=== PATIENT | male | born 1980 | race Caucasian/White ===

== ENCOUNTER 2021-08-25 22:52 | Observation (INO) | payer OTHER ==
[2021-08-25 23:20] LABS: HEMOGLOBIN 13.7 gm/dl (14.0-17.5); RED BLOOD COUNT 4.05 M/UL (4.20-5.50); WHITE BLOOD COUNT 11.1 K/UL (4.5-11.0)
[2021-08-25 23:51] LABS: BUN/CREATININE RATIO 26 (0-10)
== END 2021-08-26 02:02 | disposition home or self-care (01) ==
LOC: ER1 22:52 → CDU 08-26 00:34
PROVIDERS: Family Medicine; ADMIT Surgery
DX: S82.101A Unspecified fracture of upper end of right tibia, initial encounter for closed fracture (principal); Z20.822 Contact with and (suspected) exposure to COVID-19; T79.A21A Traumatic compartment syndrome of right lower extremity, initial encounter; E11.9 Type 2 diabetes mellitus without complications; F15.129 Other stimulant abuse with intoxication, unspecified; I10 Essential (primary) hypertension; Y24.9XXA Unspecified firearm discharge, undetermined intent, initial encounter; Z85.47 Personal history of malignant neoplasm of testis
CPT/HCPCS: 71045; 73590; 80053; 80307; 81001; 85025; 85610; 86850; 86900; 86901; 90471; 90715; 96374; 96375; 99285; G0378; G0480; J0690; J2270; J2405; Q9967; U0002

== ENCOUNTER 2021-11-18 19:41 | Emergency (ER) | payer OTHER ==
[2021-11-18 20:00] LABS: HEMOGLOBIN 13.6 gm/dl (14.0-17.5); RED BLOOD COUNT 4.38 M/UL (4.20-5.50); WHITE BLOOD COUNT 5.1 K/UL (4.5-11.0)
[2021-11-18 20:33] LABS: BUN/CREATININE RATIO 26 (0-10)
[2021-11-18] MEDS ORDERED: OMNICEF 300 MG300 MG PO (22:29)
[2021-11-18] MEDS ORDERED: BACTRIM DS TAB1 EACH PO (22:29)
== END 2021-11-19 03:42 | disposition home or self-care (01) ==
LOC: ER1 19:41
PROVIDERS: Student in an Organized Health Care Education/Training Program
DX: L03.115 Cellulitis of right lower limb (principal); F17.200 Nicotine dependence, unspecified, uncomplicated
CPT/HCPCS: 80053; 83605; 85025; 85652; 86140; 87040; 99283

== ENCOUNTER 2021-12-02 19:27 | Emergency (ER) | payer OTHER ==
[~2021-12-02 19:27] MED LIST: BACTRIM DS TAB1 EACH PO; OMNICEF 300 MG300 MG PO
[2021-12-02 19:59] LABS: HEMOGLOBIN 15.3 gm/dl (14.0-17.5); RED BLOOD COUNT 4.88 M/UL (4.20-5.50); WHITE BLOOD COUNT 6.4 K/UL (4.5-11.0)
[2021-12-02 20:10] LABS: BUN/CREATININE RATIO 26 (0-10)
== END 2021-12-02 22:23 | disposition home or self-care (01) ==
LOC: ER1 19:27
PROVIDERS: Preventive Medicine Occupational Medicine
DX: F41.9 Anxiety disorder, unspecified (principal); F40.218 Other animal type phobia; E11.9 Type 2 diabetes mellitus without complications
CPT/HCPCS: 80048; 80307; 81001; 85025; 85652; 86140; 96374; 99283; G0480; J1200